=== PATIENT | male | born 1950 | race Caucasian/White ===

== ENCOUNTER → 2017-03-07 | Outpatient (CLI) | payer OTHER, MEDICARE | LOC: MMPC 09:00 | PROVIDERS: ATTEND Family Medicine | DX: I10 Essential (primary) hypertension (principal); E66.09 Other obesity due to excess calories ==

== ENCOUNTER → 2017-03-10 | Outpatient (CLI) | payer OTHER, MEDICARE ==
[2017-03-10 11:06] LABS: HEMATOCRIT 48.7 % (42.0-52.0); HEMOGLOBIN 16.5 g/dL (14.0-18.0); MEAN CORPUSCULAR HEMOGLOBIN 30.4 PG (27-31); MEAN CORPUSCULAR HGB CONC 33.9 g/dL (33-37); MEAN CORPUSCULAR VOLUME 89.9 FL (80-90); MEAN PLATELET VOLUME 10.3 FL (7.4-12.2); RED BLOOD COUNT 5.42 10^6/uL (4.70-6.10)
[2017-03-10 11:11] LABS: BLOOD UREA NITROGEN 19 mg/dL (7-22); BUN/CREATININE RATIO 17.27 (6-20); EST GLOMERULAR FILTRATION > 60 (>60 ml/min/1.73m(2))
[2017-03-10 11:12] LABS: CALCIUM 9.6 mg/dL (8.7-10.7); CHOL/HDL RATIO 4.25 RATIO (0-4.0); HDL CHOLESTEROL 52 mg/dL (40-150); SERUM ALBUMIN 4.6 g/dL (3.5-4.8); SERUM CHOLESTEROL 221 mg/dL (120-200)
== END ==
LOC: MOB LAB 08:21
PROVIDERS: ATTEND Family Medicine
DX: I10 Essential (primary) hypertension (principal); E66.09 Other obesity due to excess calories; Z12.5 Encounter for screening for malignant neoplasm of prostate
CPT/HCPCS: 36415; 80053; 80061; 85027; G0103

== ENCOUNTER 2017-04-02 08:04 | Day surgery (SDC) | payer OTHER, MEDICARE ==
[~2017-04-02 08:04] MED LIST: LIDOCAINE W/ SODIUM BICARB 0.5 ML SYR ONE; Lactated Ringers 1,000 ML PRIMARY IV ONE; MIDAZOLAM 5 MG/1 ML ONE; fentaNYL Inj 100 MCG/2 ML VIAL ONE
[2017-04-02] MEDS ORDERED: Lactated Ringers 1,000 ML PRIMARY IV ONE (09:43)
--- NOTE | 2017-04-02 10:05 | GEN.OPNOTE ---
Colonoscopy Procedure Note Surgery Date: 04/02/17 Preoperative Diagnosis: Screening for colon cancer Postoperative Diagnosis: Colon cancer screening. Diverticulosis of the sigmoid colon Procedure: Colonoscopy Surgeon: Paul Garcia MD Anesthesia Provider: Eusebio Mccormick CRNA Anesthesia Type: MAC Indications: Colon cancer screening Findings: Prep : Excellent Cecum : Scope advanced all way cecum. Ileocecal valve identified. Patient normal. Cecum Ascending : Ascending colon had no active disease no polyps tumors or cancers Transverse : Transverse colon free from disease Sigmoid : Descending colon and no polyps tumors. Sigmoid colon had diverticulosis Rectum : Rectum free from disease excessive internal hemorrhoids not actively bleeding Digital Rectal Exam : A lubricated flexible colonoscope was inserted and passed to the blind end of the cecum. Additional Details: Follow-up colonoscopy in 10 years
[2017-04-02 10:45] VITALS: RESP 16
[2017-04-02 10:49] VITALS: TEMP 97.6
== END 2017-04-02 10:40 | disposition home or self-care (01) ==
LOC: SDSC 08:04
PROVIDERS: ATTEND Surgery
DX: Z12.11 Encounter for screening for malignant neoplasm of colon (principal); K57.30 Diverticulosis of large intestine without perforation or abscess without bleeding
CPT/HCPCS: 45378; J2250; J2704; J3010; J7120